=== PATIENT | male | born 1955 | race Caucasian/White ===

== ENCOUNTER → 2019-04-26 08:07 | Outpatient (BNVA) | payer MEDICAID, SELFPAY | PROVIDERS: Family Provider Specialist; PCP Family Medicine; Visit Provider Specialist | DX: G44.001 Cluster headache syndrome, unspecified, intractable (principal); H91.10 Presbycusis, unspecified ear; M72.2 Plantar fascial fibromatosis; F17.210 Nicotine dependence, cigarettes, uncomplicated | CPT/HCPCS: 99213 ==

== ENCOUNTER 2019-04-26 09:17 | Outpatient (CLI) | payer MEDICAID, SELFPAY ==
[2019-04-26 10:04] LABS: Basophils # 0.1 10^3/uL (0.0-0.1); Basophils % 0.7 %; Eosinophils # 0.1 10^3/uL (0.0-0.8); Eosinophils % 0.9 %; Hematocrit 42.3 % (42.0-52.0); Hemoglobin 14.2 g/dL (11.7-16.6); Lymphocytes # 1.5 10^3/uL (0.8-4.8); Lymphocytes % 15.9 %; Mean Corpuscular HGB Conc 33.6 g/dL (30.0-36.0); Mean Corpuscular Hemoglobin 32.5 pg (28.0-34.0); Mean Corpuscular Volume 96.8 fL (80-94); Mean Platelet Volume 9.1 fL (7.4-10.4); Monocytes # 0.7 10^3/uL (0.2-0.9); Monocytes % 7.3 %; Neutrophils # 6.9 10^3/uL (1.8-7.7); Neutrophils % 74.9 %; Nucleated Red Blood Cells % 0 %; Platelet Count 332 10^3/cmm (130-400); Red Blood Count 4.37 10^6/uL (4.1-5.3); Red Cell Distribution Width 12.2 % (12.1-15.1); White Blood Count 9.1 10^3/uL (4.0-10.0)
[2019-04-26 10:26] LABS: Estmated Average Glucose 108; Hemoglobin A1C 5.4 % (4.0-6.0)
[2019-04-26 10:35] LABS: Anion Gap 15.5 (5-19); Blood Urea Nitrogen 11 mg/dL (8-23); Calcium 9.8 mg/dL (8.5-10.5); Carbon Dioxide 25 mmol/L (22-29); Chloride 102 mmol/L (98-107); Glucose 115 mg/dL (65-115); Osmolality Calculated 283 mOsm/kg (285-295); Potassium 4.5 mmol/L (3.5-5.1); Sodium 138 mmol/L (136-145); Thyroid Stimulating Hormone 0.91 uIU/mL (0.27-4.20)
== END 2019-04-26 09:18 | disposition home or self-care (01) ==
LOC: LAB 09:17
PROVIDERS: Family Provider Specialist; Visit Provider Specialist
DX: Z00.00 Encounter for general adult medical examination without abnormal findings (principal)
CPT/HCPCS: 36415; 80048; 83036; 84443; 85025

== ENCOUNTER → 2019-07-26 07:53 | Outpatient (BNVA) | payer MEDICAID, SELFPAY | PROVIDERS: Family Provider Specialist; Visit Provider Specialist | DX: M75.51 Bursitis of right shoulder (principal); G44.001 Cluster headache syndrome, unspecified, intractable; F17.210 Nicotine dependence, cigarettes, uncomplicated | CPT/HCPCS: 99214 ==

== ENCOUNTER 2019-09-07 15:09 | Outpatient (CLI) | payer MEDICAID, SELFPAY ==
--- NOTE | 2019-09-07 15:22 | MR_ITS ---
WS: [id number] MRI RIGHT SHOULDER NONCONTRAST TECHNIQUE: Sagittal T2, coronal T1, T2 and proton density imaging. Axial gradient PDE imaging. CLINICAL INFORMATION: M75.51 Bursitis of right shoulder COMPARISON: None. FINDINGS: Advanced hypertrophic changes AC joint with mild edema. Mild downsloping acromion. Subacromial spurri ng. Mild chronic thinning of the distal supraspinatus with tendinopathy. Tiny insertional tear. Infra spinatus is normal. Normal teres minor. Normal subscapularis. Normal biceps tendon in the bicipital g roove. Degenerative fraying of the glenoid labrum. No fahad labral tears. MR/MR shoulder RT wo con* [id number] IMPRESSION: 1. Moderate degenerative arthritis at the AC joint with synovial thickening an d mild edema. 2. Tendinopathy in the supraspinatus with a tiny insertional tear. No full-thi ckness rotator cuff tears. 3. Rotator cuff is otherwise normal. 4. Normal biceps tendon in the bicipital groove. 5. Degenerative fraying of the glenoid labrum. No fahad labral tears. 6. Normal biceps labral anchor.
== END 2019-09-07 15:10 | disposition home or self-care (01) ==
PROVIDERS: Family Provider Specialist; Visit Provider Specialist
DX: M75.51 Bursitis of right shoulder (principal); M19.011 Primary osteoarthritis, right shoulder; R60.9 Edema, unspecified; M75.101 Unspecified rotator cuff tear or rupture of right shoulder, not specified as traumatic
CPT/HCPCS: 73221

== ENCOUNTER → 2019-11-01 13:48 | Outpatient (BNVA) | payer MEDICAID, SELFPAY | PROVIDERS: Family Provider Specialist; Visit Provider Specialist | DX: M75.81 Other shoulder lesions, right shoulder (principal); G44.001 Cluster headache syndrome, unspecified, intractable; F17.210 Nicotine dependence, cigarettes, uncomplicated | CPT/HCPCS: 99213 ==

== ENCOUNTER → 2020-05-02 10:22 | Outpatient (BNVA) | payer MEDICAID, SELFPAY | PROVIDERS: Family Provider Specialist; Visit Provider Specialist | DX: G44.001 Cluster headache syndrome, unspecified, intractable (principal); R06.02 Shortness of breath; R05 Cough; R07.9 Chest pain, unspecified; F17.210 Nicotine dependence, cigarettes, uncomplicated | CPT/HCPCS: 99214 ==

== ENCOUNTER 2020-05-22 11:17 | Outpatient (CLI) | payer MEDICAID, SELFPAY ==
--- NOTE | 2020-05-22 11:30 | CT_ITS ---
WS: [id number] CT CHEST WITHOUT INTRAVENOUS CONTRAST HISTORY: R06.02 - Shortness of breath TECHNIQUE: Contiguous 5 mm axial imaging performed on the thorax. Coronal and sagittal reformats are submitted. All CT scans at [facility] use at least one of these dose optimization techniq ues: automated exposure control; mA and/or kV adjustment per patient size (includes targeted exams wh ere dose is matched to clinical indication); or iterative reconstruction. CONTRAST: None DLP: 909.18 mGy.cm COMPARISON: None available. Lungs and central airway: Lungs are clear. No pulmonary mass or nodule. No pneumonia. No vascular con gestion or bronchiectasis. There is mild elevation of the RIGHT hemidiaphragm and eventration. Pleura: Normal. No pleural effusion. Heart and pericardium: Normal size heart with no pericardial effusion. Mediastinum and oren: Benign calcified paratracheal and RIGHT hilar lymph nodes. Otherwise no adenopa thy appreciated on this unenhanced study. Vessels: Mild atherosclerosis aorta. No aneurysm. Pulmonary artery size is normal. Chest wall and lower neck: Mild bilateral gynecomastia. Upper abdomen: Artifact from dense metallic hardware along the hepatic surface of uncertain etiology. This was also present in 2007 with no change. The liver is dense consistent with hepatic steatosis. Gallbladder is negative. No adrenal mass. Osseous structures: No destructive process. CT/CT chest wo con [id number] IMPRESSION: 1. No pulmonary mass or pneumonia. 2. Eventration of the RIGHT hemidiaphragm. 3. No bronchiectasis or lymphadenopathy. 4. Hepatic steatosis.
[2020-05-22 12:11] VITALS: BMI 31.6
--- NOTE | 2020-05-22 12:12 | ECG_ITS ---
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 Interpretive Statements NAME OF STUDY: TREADMILL STRESS TEST INDICATION: CHEST PAIN/SOB Baseline blood pressure of 176/92 mm Hg, heart rate of 73 beats per minute and oxygen saturation 97%. EKG showed normal sinus rhythm, normal axis with poor anterior R wave progression. Non specific ST-T wave changes. ??? The patient exercised for 7 minutes on on a [standard Gurpreet protocol]. Patient attained a maximum heart rate of 137 beats per minute( 87 % of the maximum predicted heart rate) with a blood pressure at the peak exercise of 241/108 mm Hg. The EKG at the peak exercise revealed sinus tachycardia with no significant ST-T wave changes. Patient did not have any chest pain or any significant arrhythmis with the exercise.??? During the recovery phase, there were no new changes. ??? Blood pressure at the end of the recovery phase was 168/96 mm Hg with a heart rate of 83 beats per minute and oxygen saturation of 97%. ??? CONCLUSION: 1. Normal EKG response to treadmill exercise. 2. No exercise-induced chest pain or cardiac arrhythmia. 3. Excellent exercise tolerance, attained a maximum of 10.2 METs. Maximum VO2 of 35.7 ml/kg/min. 4. Baseline hypertension with hypertensive response to exercise. Electronically Signed On 05-27-2020 15:26:53 CDT by Chantel Zabala M.D. [id number]
[2020-05-22 12:55] VITALS: BP 168/96; PULSE 83
== END 2020-05-22 11:18 | disposition home or self-care (01) ==
LOC: RAD 11:24 → CDL 11:33
PROVIDERS: Visit Provider Specialist
DX: R07.9 Chest pain, unspecified (principal); R06.02 Shortness of breath; K76.0 Fatty (change of) liver, not elsewhere classified
CPT/HCPCS: 71250; 93017

== ENCOUNTER → 2020-08-01 09:23 | Outpatient (BNVA) | payer MEDICAID, SELFPAY | PROVIDERS: Visit Provider Specialist | DX: G44.001 Cluster headache syndrome, unspecified, intractable (principal); F41.1 Generalized anxiety disorder; R06.02 Shortness of breath; F17.210 Nicotine dependence, cigarettes, uncomplicated | CPT/HCPCS: 99214 ==

== ENCOUNTER → 2020-09-11 14:54 | Outpatient (BNVA) | payer MEDICAID, SELFPAY | PROVIDERS: Visit Provider Nurse Practitioner Family | DX: L02.419 Cutaneous abscess of limb, unspecified (principal) | CPT/HCPCS: 87070; 87077; 87184; 87205 ==

== ENCOUNTER → 2021-05-29 10:57 | Outpatient (BNVA) | payer MEDICAID, SELFPAY | PROVIDERS: PCP Family Medicine; Visit Provider Specialist | DX: G44.001 Cluster headache syndrome, unspecified, intractable (principal); M12.819 Other specific arthropathies, not elsewhere classified, unspecified shoulder; Z79.891 Long term (current) use of opiate analgesic; F17.210 Nicotine dependence, cigarettes, uncomplicated | CPT/HCPCS: 99214 ==

== ENCOUNTER 2021-07-31 15:45 | Outpatient (CLI) | payer MEDICAID, SELFPAY ==
--- NOTE | 2021-07-31 16:00 | MR_ITS ---
WS: [id number] MRI RIGHT SHOULDER NONCONTRAST TECHNIQUE: Sagittal T2, coronal T1, T2 and proton density imaging. Axial gradient PDE imaging. CLINICAL INFORMATION: M75.81 - Other shoulder lesions, right shoulder COMPARISON: September 07, 2019 FINDINGS: Moderate degenerative arthritis at the AC joint with diffuse edema and fluid. Mild downsloping acromi on with slight subacromial spurring. Tiny insertional tear at the distal supraspinatus unchanged from previous. Mild tendinopathy distal supraspinatus. Normal infraspinatus. Normal teres minor and subsc apularis. Normal biceps tendon in the bicipital groove. Normal biceps labral anchor. Degenerative fraying of th e glenoid labrum. Normal bone marrow signal in the glenoid and humerus. MR/MR shoulder RT wo con* [id number] IMPRESSION: 1. Overall no significant changes compared to previous. 2. Stable supraspinatus insertional tear. Mild tendinopathy supraspinatus. 3. Rotator cuff is otherwise intact. 4. Moderate to advanced degenerative arthritis AC joint with fluid and edema s imilar to previous. Slight subacromial spurring. 5. Normal biceps tendon in the bicipital groove. 6. Degenerative fraying of the glenoid labrum.
== END 2021-07-31 15:46 | disposition home or self-care (01) ==
LOC: RAD 15:47
PROVIDERS: PCP Specialist; Visit Provider Specialist
DX: M75.81 Other shoulder lesions, right shoulder (principal); M75.51 Bursitis of right shoulder; M19.011 Primary osteoarthritis, right shoulder
CPT/HCPCS: 73221

== ENCOUNTER 2021-08-01 09:00 | Observation (INO) | payer MEDICAID, SELFPAY ==
[2021-08-01] VITALS (13 sets, daily range): BP systolic 122–182; BP diastolic 72–111; PULSE 45–100; RESP 13–21; TEMP 36.3–36.9; O2SAT 94–100; BMI 30.3
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
--- NOTE | 2021-08-01 09:19 | ECG_ITS ---
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 Measurements Intervals [place] Rate: 47 P: 42 NC: 162 QRS: 15 QRSD: 98 T: 63 QT: 444 QTc: 395 Interpretive Statements SINUS BRADYCARDIA No previous ECG available for comparison Electronically Signed On 08-01-2021 17:13:14 CDT by Yan Eaton M.D. [id number] f
[2021-08-01 09:47] LABS: Basophils # 0.1 10^3/uL (0.0-0.1); Basophils % 0.9 %; Eosinophils # 0.1 10^3/uL (0.0-0.8); Eosinophils % 1.7 %; Hematocrit 43.4 % (42.0-52.0); Hemoglobin 15.1 g/dL (11.7-16.6); Lymphocytes # 1.5 10^3/uL (0.8-4.8); Lymphocytes % 22.5 %; Mean Corpuscular HGB Conc 34.8 g/dL (30.0-36.0); Mean Corpuscular Hemoglobin 33.5 pg (28.0-34.0); Mean Corpuscular Volume 96.2 fl (80-94); Mean Platelet Volume 9.5 fL (7.4-10.4); Monocytes # 0.8 10^3/uL (0.2-0.9); Monocytes % 12.8 %; Neutrophils # 4.01 10^3/uL (1.8-7.7); Neutrophils % 61.6 %; Nucleated Red Blood Cells % 0 %; Platelet Count 298 10^3/cmm (130-400); Red Blood Count 4.51 10^6/uL (4.1-5.3); White Blood Count 6.5 10^3/uL (4.0-10.0)
[2021-08-01 10:00] LABS: Alanine Aminotransferase 23 U/L (0-41); Albumin Level 4.5 g/dL (3.5-5.2); Alkaline Phosphatase 70 IU/L (40-130); Anion Gap 17.4 (5-19); Aspartate Amino Transferase 21 U/L (0-40); Blood Urea Nitrogen 11 mg/dL (8-23); Calcium 9.1 mg/dL (8.5-10.5); Carbon Dioxide 23 mmol/L (22-29); Chloride 100 mmol/L (98-107); Globulin 2.2 g/dL (1.3-4.6); Glomerular Filtration Rate 113.5 mL/min (90-130); Glucose 111 mg/dL (65-115); Osmolality Calculated 282 mOsm/kg (285-295); Potassium 4.4 mmol/L (3.5-5.1); Sodium 136 mmol/L (136-145); Total Bilirubin 0.4 mg/dL (0.15-1.2); Total Protein 6.7 g/dL (6.6-8.7); Troponin(5th) Baseline 10 ng/L (0-15)
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
--- NOTE | 2021-08-01 11:19 | ECG_ITS ---
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 Measurements Intervals [place] Rate: 54 P: 45 NH: 161 QRS: 7 QRSD: 101 T: 69 QT: 441 QTc: 421 Interpretive Statements SINUS BRADYCARDIA POSSIBLE ANTERIOR MYOCARDIAL INFARCTION , PROBABLY OLD [30 ms Q WAVE IN V3/V4, OR R < 0.2 mV IN V4] No previous ECG available for comparison Electronically Signed On 08-01-2021 17:15:01 CDT by Yan Eaton M.D. [id number]
[2021-08-01 11:52] LABS: Troponin 5 2HR 7.81 ng/L (0-15)
[2021-08-01 12:14] LABS: Troponin 5 2HR Delta -2.19 ABS# (0-10)
--- NOTE | 2021-08-01 15:19 | ECG_ITS ---
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 Measurements Intervals [place] Rate: 49 P: 59 VA: 159 QRS: -4 QRSD: 102 T: 57 QT: 434 QTc: 393 Interpretive Statements SINUS BRADYCARDIA LOW QRS VOLTAGE IN PRECORDIAL LEADS [QRS DEFLECTION < 1.0 mV IN CHEST LEADS] Compared to ECG 08/01/2021 10:59:17 Low QRS voltage now present Myocardial infarct finding no longer present Electronically Signed On 08-01-2021 17:15:40 CDT by Yan Eaton M.D. [email or web address] medical [id number]
[2021-08-01] MEDS: nicotine 21 mg Patch 1 PATCH TRANSDERMA (16:06)
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
--- NOTE | 2021-08-01 16:23 | USCV_ITS ---
GhanshyamChai neves Age: 65 Gender: M : 1955 Exam Date: 08/01/2021 19:05 Ordering Phys: Fozia Seay MD Technologist: LUCITA Exam Location: [facility] [place] Indication: Unstable Angina BP: 151 / 83 HR: 50 Rhythm: Sinus Technical Quality: Adequate MEASUREMENTS (Male / Female) Normal Values 2D ECHO LV Diastolic Diameter PLAX 5.3 cm 4.2 - 5.9 / 3.9 - 5.3 cm LV Systolic Diameter PLAX 2.7 cm IVS Diastolic Thickness 1.5 cm 0.6 - 1.0 / 0.6 - 0.9 cm IVS Systolic Thickness 1.6 cm LVPW Diastolic Thickness 1.5 cm 0.6 - 1.0 / 0.6 - 0.9 cm LVPW Systolic Thickness 2.4 cm LVOT Diameter 2.3 cm LV Ejection Fraction 2D Teich 80.0 % LV Ejection Fraction MOD 2C 77.8 % LV Ejection Fraction 2C AL 77.8 % LA Diameter 4.1 cm LA Width 3.3 cm LA Height 5.4 cm RA Width 6.1 cm RA Height 4.5 cm Aorta at Sinotubular Diameter 2.5 cm M-MODE Aortic Annulus Diameter 3.2 cm LA Ao Ratio MM 1.5 MV E Point Septal Separation 1.4 cm DOPPLER AV Peak Velocity 105.3 cm/s LVOT Peak Velocity 81.0 cm/s AV Area Cont Eq vti 3.0 cm squared AV Area Cont Eq pk 3.3 cm squared MV Peak Velocity 63.0 cm/s MV Area PHT 1.9 cm squared Mitral E to A Ratio 0.7 MV E' Velocity 28.5 cm/s Mitral E to MV E' Ratio 3.8 Mitral E to LV E' Lateral Ratio 3.4 Mitral E to LV E' Septal Ratio 4.2 TR Peak Velocity 122.5 cm/s TR Peak Gradient 6.0 mmHg TR Mean Velocity 82.3 cm/s TR Mean Gradient 3.1 mmHg TR Velocity Time Integral 23.7 cm Right Atrial Pressure 10.0 mmHg Pulmonary Artery Systolic Pressu 16.0 mmHg PV Peak Velocity 69.0 cm/s RV Acceleration Time 0.2 s RV Ejection Time 0.4 s RV AcT/ET 0.5 FINDINGS Left Ventricle Normal left ventricular size. LV systolic function is normal with EF of 55-60%. No regional wall motion abnormalities. Grade 1 diastolic dysfunction Right Ventricle The right ventricle is normal in size and function. Right Atrium The right atrium is normal in size. Left Atrium The left atrium is normal in size. Mitral Valve Structurally normal mitral valve without significant stenosis or prolapse. There is trace mitral regurgitation. Aortic Valve Structurally normal aortic valve without significant sclerosis or stenosis. There is no aortic regurgitation. Tricuspid Valve Structurally normal tricuspid valve without significant stenosis. Trace tricuspid regurgitation. Pulmonary artery systolic pressure is normal. Pulmonic Valve Not well visualized Pericardium Normal pericardium without effusion. Aorta Normal ascending aorta dimension. IVC CONCLUSIONS LV systolic function is normal with EF of 55-60% Grade 1 diastolic dysfunction Trace mitral regurgitation Trace tricuspid regurgitation No comparison studies are available Boone Ortiz MD (Electronically Signed) Final Date: 02 August 2021 10:07 S
[2021-08-01 16:42] LABS: Troponin 5 6HR 7.37 ng/L (0-15)
[2021-08-01 16:52] LABS: Troponin 5 6HR Delta -2.63 ng/L (0-12)
[2021-08-01 17:04] LABS: D Dimer 0.42 ug/mIFEU (0-0.59)
[2021-08-01 17:19] LABS: Thyroid Stimulating Hormone 0.99 uIU/mL (0.27-4.20)
[2021-08-01 17:30] LABS: Alcohol Level < 10 mg/dL (0-10)
[2021-08-01] MEDS: lisinopril 10 mg Tablet PO (17:36)
[2021-08-01] MEDS: acetaminophen 500 mg Tablet PO (18:24)
[2021-08-01 18:48] LABS: Amphetamines Screen Urine Negative (Negative); Barbiturates Screen Urine Negative (Negative); Benzodiazepines Screen Urine Negative (Negative); Cocaine Screen Urine Negative (Negative); Opiate Screen Urine Negative (Negative); PCP Screen Urine Negative (Negative); THC Screen Urine Positive (Negative)
[2021-08-02] VITALS (8 sets, daily range): BP systolic 121–149; BP diastolic 74–87; PULSE 47–81; RESP 16–166; TEMP 36.4–36.8; O2SAT 97–100
[2021-08-02 05:12] LABS: Basophils # 0.1 10^3/uL (0.0-0.1); Basophils % 1.1 %; Eosinophils # 0.2 10^3/uL (0.0-0.8); Eosinophils % 2.7 %; Hematocrit 43.6 % (42.0-52.0); Hemoglobin 14.2 g/dL (11.7-16.6); Lymphocytes # 1.7 10^3/uL (0.8-4.8); Lymphocytes % 29.6 %; Mean Corpuscular HGB Conc 32.6 g/dL (30.0-36.0); Mean Corpuscular Hemoglobin 33.2 pg (28.0-34.0); Mean Corpuscular Volume 101.9 fl (80-94); Mean Platelet Volume 9.2 fL (7.4-10.4); Monocytes # 0.8 10^3/uL (0.2-0.9); Monocytes % 13.3 %; Neutrophils % 52.9 %; Nucleated Red Blood Cells % 0 %; Platelet Count 282 10^3/cmm (130-400); Red Blood Count 4.28 10^6/uL (4.1-5.3); Red Cell Distribution Width 12.1 % (12.1-15.1); White Blood Count 5.7 10^3/uL (4.0-10.0)
[2021-08-02 05:36] LABS: Anion Gap 13.2 (5-19); Blood Urea Nitrogen 11 mg/dL (8-23); C Reactive Protein 9.8 mg/L (0.0-4.9); Calcium 9.6 mg/dL (8.5-10.5); Carbon Dioxide 24 mmol/L (22-29); Chloride 102 mmol/L (98-107); Glomerular Filtration Rate 113.5 mL/min (90-130); Glucose 107 mg/dL (65-115); Osmolality Calculated 280 mOsm/kg (285-295); Potassium 4.2 mmol/L (3.5-5.1); Sodium 135 mmol/L (136-145)
--- NOTE | 2021-08-02 07:14 | ECG_ITS ---
[facility] Test Date: 2021-08-02 Pat Name: Chai Vega Department: Room: 253 Gender: Male Supervisor Soakers: Alta Rezan : 1955 Requested By: Fozia Seay Order Number: [id number] Maribel MD: Rachell Grayson M.D. Interpretive Statements NAME OF STUDY: LEXISCAN SESTAMIBI STRESS TEST INDICATION: Unstable angina, PROCEDURE: At the baseline, the EKG revealed sinus bradycardia rate of 51 bpm. Poor R wave progression. No acute ST-T changes.. The baseline blood pressure was 139/92 mm Hg with a heart rate of 51 beats/min. Lexiscan was infused over a period of 20 seconds. A total of 0.4 milligrams of Lexiscan was infused. The stress phase was continued for a total of 5 minutes. Heart rate at the end of the stress phase was 74 with a blood pressure 122/69. The EKG at the peak infusion revealed no significant changes. Sestamibi was injected 20 seconds after the Lexiscan infusion. Blood pressure at the end of the recovery phase was 138/74 with a heart rate of 99 per minute. CONCLUSION: 1. No significant EKG changes with the LexiScan infusion 2. No LexiScan induced chest pain or cardiac arrhythmia 3. Normal blood pressure and heart rate response 4. Sestamibi/sestamibi perfusion scan pending; see separate report. Electronically Signed On 08-02-2021 13:46:59 CDT by Rachell Grayson M.D. [id number]
[2021-08-02] MEDS: regadenoson 0.4 Mg/5 ml Syringe IVP (07:56)
[2021-08-02] MEDS: lisinopril 10 mg Tablet PO (09:29)
[2021-08-02] MEDS: sennosides-docusate Tablet 1 TAB PO (09:31)
[2021-08-02] MEDS: multivitamin therapeutic Tablet 1 TAB PO (09:31)
[2021-08-02] MEDS: folic acid 1 mg Tablet PO (09:31)
[2021-08-02] MEDS: thiamine 100 mg Tablet PO (09:31)
--- NOTE | 2021-08-02 09:38 | PC.CHAP ---
Pastoral Care Encounter/Spiritual Assessment Type of Contact [] Declined product advisor visit [] Patient/Family/Request visit [] Outpatient visit [] Follow-up visit [] Physician referral [] Code/Alert [x] Routine visit [] Staff referral [] Actively dying [] Patient sleeping [] Family support [] [x] Out of room [] Palliative care [] [] Receiving care in room [] Pre-surgical visit [] Trauma [] Long length of stay [] ICU visit [] Other: Relational/Emotional Strength [] Patient feels connected with others/family/visitors/staff [] Distress [] Loneliness/isolation [] Abandonment Spirituality of Patient [] Person of Marie [] Attends [facility]aritan of their Marie [] Believes in Prayer [] Reads Bible or Adventist materials [] There are Spiritual issues to be addressed Director Digital Analytics Interventions [] Prayer [] Active listening [] Non-anxious presence [] Spiritual/emotional support [] Crisis/trauma care [] Spiritual counseling [] Bereavement support [] Provided bereavement packet [] Provided Bible/devotional materials [] Provided toy/stuffed animal, coloring book to patient or family member [] Provided Communion [] Anointing/[place] [] Salvation [] Completed spiritual assessment [] Other: Impact on Illness or Injury [] Angry [] Fearful [] Anxious [] Often cries [] Exhaustion [] Unable to work [] Unable to attend methodist [] Unable to walk/stand [] Unable to read [] Unable to drive [] Unable to eat/drink [] Unable to sleep [] Unable to be with family [] Patient intubated [] Other: Summary Time spent with patient
--- NOTE | 2021-08-02 15:38 | P.DS_ITS ---
Discharge Providers Date of Admission: 08/01/21 12:51 Date of Discharge: August 02, 2021 Attending Provider at Admission: Fozia Seay MD Attending Provider at Discharge: Fozia Seay MD Primary Care Provider: Zayra Arnold MD Diagnoses at Discharge Discharge Diagnosis (1) Unstable angina pectoris: Status: Acute (2) Alcohol abuse: Status: Acute (3) Hypertension: Status: Acute Reason for Visit Reason for Visit: CHEST PAIN Hospital Course Hospital Course 55-year male with history of alcohol abuse, marijuana abuse, presented with chief complaint of chest pain and generalized weakness. Echo was unremarkable, stress test did not show reversible ischemic changes. He did not experience recurrent symptoms during his hospitalization. Troponins were unremarkable. EKG without ischemic or infarctive changes. Patient was discharged on omeprazole for alcohol-related gastritis related symptoms. He was counseled to follow-up with his PCP. Might benefit from an EGD outpatient. He was kept on CIWA protocol however did not show any signs of withdrawal. Physical Exam Narrative: Pleasant cooperative male No active chest pain Hemodynamically stable Saturating well on room air Nonfocal neuro exam S1, S2 Laparotomy scar noted Abdomen soft No sign of cellulitis ? Discharge Data Studies Completed and Pending Completed Studies During Hospitalization Category Date Time Status Sestamibi Stress Test Request Routine Exams 08/02/21 07:14 Completed XR chest 1V portable [id number] Stat Exams 08/01/21 09:19 Completed NM dennis perf SPECT r/s* [id number] Routine Nuc Med 08/02/21 16:24 Completed CV. echo complete* [id number] Routine Ultrasound 08/01/21 16:23 Completed Pending at discharge Category Date Time Status Sestamibi Stress Test Request Routine Exams 08/01/21 16:24 Stop Req Radiology Impressions Chest X-Ray 08/01/21 09:19 IMPRESSION: No acute findings. Laboratory Results WBC 5.7 10^3/uL (4.0-10.0) 08/02/21 04:40 RBC 4.28 10^6/uL (4.1-5.3) 08/02/21 04:40 Hgb 14.2 g/dL (11.7-16.6) 08/02/21 04:40 Hct 43.6 % (42.0-52.0) 08/02/21 04:40 MCV 101.9 fl (80-94) H D 08/02/21 04:40 MCH 33.2 pg (28.0-34.0) 08/02/21 04:40 MCHC 32.6 g/dL (30.0-36.0) D 08/02/21 04:40 RDW 12.1 % (12.1-15.1) 08/02/21 04:40 Plt Count 282 10^3/cmm (130-400) 08/02/21 04:40 MPV 9.2 fL (7.4-10.4) 08/02/21 04:40 Neut % (Auto) 52.9 % 08/02/21 04:40 Lymph % (Auto) 29.6 % 08/02/21 04:40 Archuleta % (Auto) 13.3 % 08/02/21 04:40 Eos % (Auto) 2.7 % 08/02/21 04:40 Baso % (Auto) 1.1 % 08/02/21 04:40 Neut # (Auto) 3.00 10^3/uL (1.8-7.7) 08/02/21 04:40 Lymph # (Auto) 1.7 10^3/uL (0.8-4.8) 08/02/21 04:40 Archuleta # (Auto) 0.8 10^3/uL (0.2-0.9) 08/02/21 04:40 Eos # (Auto) 0.2 10^3/uL (0.0-0.8) 08/02/21 04:40 Baso # (Auto) 0.1 10^3/uL (0.0-0.1) 08/02/21 04:40 Nucleated RBC % (auto) 0 % 08/02/21 04:40 Nucleated RBCs # 0.0 /100WBC 08/02/21 04:40 D-Dimer 0.42 ug/mIFEU (0-0.59) 08/01/21 16:39 Sodium 135 mmol/L (136-145) L 08/02/21 04:40 Potassium 4.2 mmol/L (3.5-5.1) 08/02/21 04:40 Chloride 102 mmol/L (98-107) 08/02/21 04:40 Carbon Dioxide 24 mmol/L (22-29) 08/02/21 04:40 Anion Gap 13.2 (5-19) 08/02/21 04:40 BUN 11 mg/dL (8-23) 08/02/21 04:40 Creatinine 0.7 mg/dL (0.7-1.2) 08/02/21 04:40 GFR Calculation 113.5 mL/min (90-130) 08/02/21 04:40 Glucose 107 mg/dL (65-115) 08/02/21 04:40 Calculated Osmolality 280 mOsm/kg (285-295) L 08/02/21 04:40 Calcium 9.6 mg/dL (8.5-10.5) 08/02/21 04:40 Total Bilirubin 0.4 mg/dL (0.15-1.2) 08/01/21 09:10 AST 21 U/L (0-40) 08/01/21 09:10 ALT 23 U/L (0-41) 08/01/21 09:10 Alkaline Phosphatase 70 IU/L (40-130) 08/01/21 09:10 Troponin T Baseline 10 ng/L (0-15) 08/01/21 09:10 Troponin T 120 Minute 7.81 ng/L (0-15) 08/01/21 11:06 Delta Troponin T -2.19 ABS# (0-10) L 08/01/21 11:06 Troponin T Hi Sens 6Hr 7.37 ng/L (0-15) 08/01/21 15:31 Troponin T Hi Sens 6Hr Delta -2.63 ng/L (0-12) L 08/01/21 15:31 C-Reactive Protein 9.8 mg/L (0.0-4.9) H 08/02/21 04:40 Total Protein 6.7 g/dL (6.6-8.7) 08/01/21 09:10 Albumin 4.5 g/dL (3.5-5.2) 08/01/21 09:10 Globulin 2.2 g/dL (1.3-4.6) 08/01/21 09:10 TSH 0.99 uIU/mL (0.27-4.20) 08/01/21 15:31 Urine Opiates Screen Negative ng/mL (Negative) 08/01/21 18:30 Ur Barbiturates Screen Negative ng/mL (Negative) 08/01/21 18:30 Ur Phencyclidine Scrn Negative ng/mL (Negative) 08/01/21 18:30 Ur Amphetamines Screen Negative ng/mL (Negative) 08/01/21 18:30 U Benzodiazepines Scrn Negative ng/mL (Negative) 08/01/21 18:30 Urine Cocaine Screen Negative ng/mL (Negative) 08/01/21 18:30 U Marijuana (THC) Screen Positive ng/mL (Negative) H 08/01/21 18:30 Ethyl Alcohol < 10 mg/dL (0-10) 08/01/21 15:31 Vitals Last Vital Signs Temp 97.5 F L 08/02/21 04:00 Pulse 55 L 08/02/21 11:42 Resp 16 08/02/21 11:42 BP 149/87 08/02/21 11:42 Pulse Ox 100 08/02/21 11:42 Discharge Plan Discharge Patient Disposition: Home Condition: Stable Prescriptions: New omeprazole 10 mg capsule,delayed release(DR/EC) 10 mg PO DAILY Qty: 30 2RF Continued aspirin 325 mg Tablet 325 mg PO .ONCE 0RF lisinopril 10 mg tablet 10 mg PO BID 0RF albuterol sulfate 90 mcg/actuation Hfa Aerosol Inhaler 2 puff INHALATION Q4H PRN (Reason: Shortness Of Breath) 0RF Probiotic 1 cap PO .ONCE 0RF Xanax 0.5 mg tablet 0.5 mg PO DAILY PRN (Reason: Anxiety) 0RF oxycodone 15 mg tablet 7.5 mg PO BID PRN (Reason: Pain) 0RF Discharge Orders: Discharge Order (Routine); Ordered 08/02/21 Ordered By: Fozia Seay Referrals: Zayra Arnold MD [Primary Care Provider] - 08/05/21 2:00 pm Discharge Diet: Cardiac Discharge Activity: Increase activity as tolerated Patient Instructions: Omeprazole (By mouth), Angina (DC), Chronic Hypertension (DC), Opioid Safety Discharge Attestations Time Spent in Discharge Care*: less than 30 min Quality Metrics Clinical Quality Measures [ No reported AMI, CVA or VTE this stay] Coding Level of Care Code Acute Chg FW DC note Diagnoses Unstable angina pectoris I20.0 Alcohol abuse F10.10 Hypertension I10
--- NOTE | 2021-08-02 16:24 | NMCV_ITS ---
NM dennis perf SPECT r/s* [id number] GhanshyamChai neves Age: 65 Gender: M : 1955 Exam Date: 08/02/2021 06:54 Ordering Phys: Fozia Seay MD Technologist: JUDE Buck Exam Location: [facility] Indications: Chest pain STRESS TEST Please see separate stress test report in [facility] for full findings IMAGE PROTOCOL Rest/Stress 1 Lexiscan Day Radiopharmaceutical Dose (mCi) Administration Site Administered by Rest: Tc-99m 10.9 IV JUDE Buck Sestamibi Stress:Tc-99m 32.9 IV JUDE Buck Sestamibi Rest: 02-Aug-2021 30 Discovery 630 Stress: 02-Aug-2021 60 Discovery 630 0.4mg Lexiscan. Supine position only as patient was unable to lay prone. SPECT RESULTS Technical Quality: Good Raw Data Analysis: Normal Image Corrections: No attenuation or motion correction applied Summed Stress Score: 7 Summed Rest Score: 8 Summed Difference Score: 1 PERFUSION FINDINGS Small to moderate area of moderately decreased tracer uptake in the mid and apical inferior, apical lateral and LV apex. No significant reversibility was noted in these regions FUNCTIONAL RESULTS (calculated via Gated SPECT) Stress Image LV EF (%): 65 Stress EDV (mL):127 TID: 1.01 Stress ESV (mL):45 FUNCTIONAL FINDINGS: Segmental wall motion analysis revealing no gross wall motion normalities IMPRESSIONS 1. Myocardial perfusion may revealing mild to moderate area of persistent decreased tracer uptake in the inferior and apical regions, suggesting myocardial scarring versus attenuation artifact. 2. Normal LV ejection fraction of 65%. 3. LV wall motion analysis revealing no gross wall motion abnormalities. 4. Normal LV volume. No similar previous studies are available for comparison Dr Rachell Grayson MD [facility] (Electronically Signed) Final Date: 02 August 2021 15:33 S
--- NOTE | 2021-08-02 16:45 | PC.NURSE ---
Discussed discharge, medications and follow up appointments with patient. Verbalized understanding.
== END 2021-08-02 16:30 | disposition home or self-care (01) ==
LOC: ER 13:35 → MEDSURG 13:36
PROVIDERS: Admitting Provider Internal Medicine; Emergency Provider Family Medicine; PCP Specialist; Visit Provider Internal Medicine
DX: I20.0 Unstable angina (principal); F10.10 Alcohol abuse, uncomplicated; I10 Essential (primary) hypertension; F17.210 Nicotine dependence, cigarettes, uncomplicated
CPT/HCPCS: 36415; 71045; 78452; 80048; 80053; 80306; 80307; 84443; 84484; 85025; 85378; 86140; 93005; 93017; 93306; 96372; 99285; A9500; G0378; J2785; J3411

== ENCOUNTER → 2021-08-05 13:57 | Outpatient (BNVA) | payer MEDICAID, SELFPAY | PROVIDERS: PCP Specialist; Visit Provider Specialist | DX: Z09 Encounter for follow-up examination after completed treatment for conditions other than malignant neoplasm (principal); G44.001 Cluster headache syndrome, unspecified, intractable; R07.9 Chest pain, unspecified; K29.70 Gastritis, unspecified, without bleeding; F41.9 Anxiety disorder, unspecified; F43.10 Post-traumatic stress disorder, unspecified; F17.210 Nicotine dependence, cigarettes, uncomplicated | CPT/HCPCS: 99214 ==

== ENCOUNTER 2021-09-16 06:07 | Day surgery (SDC) | payer MEDICAID, SELFPAY ==
[2021-09-12 11:53] VITALS: BMI 30.3
[2021-09-16 06:26] VITALS: BP 159/100; PULSE 55; RESP 18; TEMP 36; O2SAT 100
[2021-09-16] MEDS: sodium chloride 0.9% 1,000 ML 30 ML IV (06:37)
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
[2021-09-16 07:39] VITALS: BP 106/75; PULSE 52; RESP 16; TEMP 36.1; O2SAT 94
--- NOTE | 2021-09-16 07:41 | ANE.PACU2 ---
Inpatient post-anesthesia follow up: Airway intact: Yes Vital signs: Temperature 97.0 F Pulse Rate 52 Respiratory Rate 16 Blood Pressure 106/75 Pulse Oximetry 94 Oxygen Delivery Me thod Room Air Oxygen Flow Rate Fraction of Inspir ed Oxygen Hydration adequate: Yes Nausea and vomiting: No Pain level: 1 Mental status: Baseline
[2021-09-16 07:48] VITALS: BP 151/81; PULSE 49; RESP 16; O2SAT 100
== END 2021-09-16 08:12 | disposition home or self-care (01) ==
PROVIDERS: PCP Specialist; Visit Provider Internal Medicine
PROC: 0DJ08ZZ Inspection of Upper Intestinal Tract, Via Natural or Artificial Opening Endoscopic (ICD-10-PCS; CPT 43235; principal; 2021-09-16 07:00)
PROC: 0DJD8ZZ Inspection of Lower Intestinal Tract, Via Natural or Artificial Opening Endoscopic (ICD-10-PCS; CPT 45378; 2021-09-16 07:00)
DX: Z12.11 Encounter for screening for malignant neoplasm of colon (principal); R07.89 Other chest pain; K21.00 Gastro-esophageal reflux disease with esophagitis, without bleeding; F17.210 Nicotine dependence, cigarettes, uncomplicated
CPT/HCPCS: 43239; 45378; 88305; J2704; J7030

== ENCOUNTER → 2021-11-05 15:11 | Outpatient (BNVA) | payer MEDICAID, SELFPAY | PROVIDERS: PCP Specialist; Visit Provider Specialist | DX: G44.001 Cluster headache syndrome, unspecified, intractable (principal); Z79.891 Long term (current) use of opiate analgesic | CPT/HCPCS: 99213; 99214 ==

== ENCOUNTER → 2022-05-20 08:00 | Outpatient (BNVA) | payer MEDICAID, SELFPAY | PROVIDERS: PCP Specialist; Visit Provider Specialist | DX: G44.001 Cluster headache syndrome, unspecified, intractable (principal); I10 Essential (primary) hypertension; F17.210 Nicotine dependence, cigarettes, uncomplicated; Z79.891 Long term (current) use of opiate analgesic | CPT/HCPCS: 99213 ==

== ENCOUNTER → 2022-08-15 07:53 | Outpatient (BNVA) | payer MEDICAID, SELFPAY | PROVIDERS: Visit Provider Specialist | DX: G44.001 Cluster headache syndrome, unspecified, intractable (principal); I10 Essential (primary) hypertension; K42.9 Umbilical hernia without obstruction or gangrene; F17.210 Nicotine dependence, cigarettes, uncomplicated | CPT/HCPCS: 99214 ==

== ENCOUNTER → 2022-09-23 08:38 | Outpatient (BNVA) | payer MEDICAID, SELFPAY | PROVIDERS: Visit Provider Surgery | DX: K42.9 Umbilical hernia without obstruction or gangrene (principal) | CPT/HCPCS: 99203 ==

== ENCOUNTER 2022-11-17 06:02 | Day surgery (SDC) | payer MEDICAID, SELFPAY ==
[2022-11-14 09:49] VITALS: BMI 29.7
[2022-11-17] VITALS (13 sets, daily range): BP systolic 137–181; BP diastolic 72–97; PULSE 52–59; RESP 16–24; TEMP 35.9–36.9; O2SAT 93–99; BMI 29.7
[2022-11-17] MEDS: sodium chloride 0.9% 1,000 ML 30 ML IV (06:24)
--- NOTE | 2022-11-17 06:42 | ECG_ITS ---
[facility] Test Date: 2022-11-17 Pat Name: Chai Vega Department: Room: Gender: Male Tax Agent: : 1955 Requested By: Tevin Arriaga Order Number: [id number] López MD: Chantel Zabala M.D. Measurements Intervals [place] Rate: 49 P: 70 [place]: 158 QRS: 18 QRSD: 100 T: 46 QT: 448 QTc: 407 Interpretive Statements SINUS BRADYCARDIA Compared to ECG 08/01/2021 16:45:33 No significant changes Electronically Signed On 11-17-2022 6:56:47 CDT by Chantel Zabala M.D. [id number]
[2022-11-17] MEDS: famotidine 20 mg/2 mL INJ IVP (06:56)
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
[2022-11-17] MEDS: citric acid-sodium citrate 30 mL UDC PO (06:59)
[2022-11-17] MEDS: ceFAZolin 2,000 MG in sodium chloride 0.9% (plus) 50 ML 100 MG IV (07:03)
[2022-11-17] MEDS: lidocaine-epi 2% 20 mL INJ INJECTION (07:49)
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
[2022-11-17] MEDS: HYDROmorphone 1 mg/mL INJ 1 mL 0.5 MG IVP ×2 (08:26→08:39)
--- NOTE | 2022-11-17 17:13 | ANE.PACU2 ---
Inpatient post-anesthesia follow up: Airway intact: Yes Vital signs: Temperature 98 F Pulse Rate 56 Respiratory Rate 18 Blood Pressure 137/78 Pulse Oximetry 94 Oxygen Delivery Me thod Room Air Oxygen Flow Rate Fraction of Inspir ed Oxygen Hydration adequate: Yes Nausea and vomiting: No Pain level: 2 Mental status: Baseline
== END 2022-11-17 10:04 | disposition home or self-care (01) ==
PROVIDERS: PCP Specialist; Visit Provider Surgery
PROC: 0WQF4ZZ Repair Abdominal Wall, Percutaneous Endoscopic Approach (ICD-10-PCS; principal; 2022-11-17 07:00)
DX: K43.2 Incisional hernia without obstruction or gangrene (principal); K66.0 Peritoneal adhesions (postprocedural) (postinfection); F17.210 Nicotine dependence, cigarettes, uncomplicated
CPT/HCPCS: 49593; 93005; J0690; J1100; J1170; J2405; J2704; J3010; J3490; J7030

== ENCOUNTER → 2022-12-02 09:41 | Outpatient (BNVA) | payer MEDICAID, SELFPAY | PROVIDERS: Visit Provider Surgery | DX: Z98.890 Other specified postprocedural states (principal); Z87.19 Personal history of other diseases of the digestive system | CPT/HCPCS: 99024 ==

== ENCOUNTER → 2023-02-11 13:16 | Outpatient (BNVA) | payer MEDICAID, SELFPAY | PROVIDERS: Visit Provider Specialist | DX: R29.90 Unspecified symptoms and signs involving the nervous system (principal); G44.011 Episodic cluster headache, intractable; F41.9 Anxiety disorder, unspecified; I10 Essential (primary) hypertension | CPT/HCPCS: 99213 ==

== ENCOUNTER → 2023-05-19 14:33 | Outpatient (BNVA) | payer MEDICAID, SELFPAY | PROVIDERS: Visit Provider Specialist | DX: R29.90 Unspecified symptoms and signs involving the nervous system (principal); I10 Essential (primary) hypertension; K42.9 Umbilical hernia without obstruction or gangrene; G44.011 Episodic cluster headache, intractable; H91.13 Presbycusis, bilateral | CPT/HCPCS: 99213 ==

== ENCOUNTER → 2023-11-23 09:45 | Outpatient (BNVA) | payer MEDICAID, SELFPAY | PROVIDERS: Visit Provider Specialist | DX: R29.90 Unspecified symptoms and signs involving the nervous system (principal); I10 Essential (primary) hypertension; K42.9 Umbilical hernia without obstruction or gangrene; G44.011 Episodic cluster headache, intractable; H91.13 Presbycusis, bilateral | CPT/HCPCS: 99213 ==

== ENCOUNTER → 2024-02-11 12:38 | Outpatient (BNVA) | payer MEDICAID, SELFPAY | PROVIDERS: Visit Provider Specialist | DX: R29.90 Unspecified symptoms and signs involving the nervous system (principal); I10 Essential (primary) hypertension; K42.9 Umbilical hernia without obstruction or gangrene; G44.011 Episodic cluster headache, intractable; H91.13 Presbycusis, bilateral; C34.90 Malignant neoplasm of unspecified part of unspecified bronchus or lung | CPT/HCPCS: 99213 ==

== ENCOUNTER → 2024-05-11 14:57 | Outpatient (BNVA) | payer MEDICAID, SELFPAY | PROVIDERS: Visit Provider Specialist | DX: R29.90 Unspecified symptoms and signs involving the nervous system (principal); I10 Essential (primary) hypertension; K42.9 Umbilical hernia without obstruction or gangrene; G44.011 Episodic cluster headache, intractable; H91.13 Presbycusis, bilateral; C34.90 Malignant neoplasm of unspecified part of unspecified bronchus or lung | CPT/HCPCS: 99213 ==

== ENCOUNTER → 2024-08-30 14:27 | Outpatient (BNVA) | payer MEDICAID, SELFPAY | PROVIDERS: Visit Provider Specialist | DX: G44.011 Episodic cluster headache, intractable (principal); R29.90 Unspecified symptoms and signs involving the nervous system; I10 Essential (primary) hypertension; K42.9 Umbilical hernia without obstruction or gangrene; H91.13 Presbycusis, bilateral; C34.90 Malignant neoplasm of unspecified part of unspecified bronchus or lung; G43.909 Migraine, unspecified, not intractable, without status migrainosus | CPT/HCPCS: 99213 ==